=== PATIENT | female | born 1970 | race Caucasian/White ===

== ENCOUNTER 2016-08-02 18:07 | Emergency (ER) | payer OTHER, BC ==
[2016-08-02] MEDS ORDERED: KETOROLAC 30 MG/ML VIAL (J1885) As Ordered ONE (19:33)
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
--- NOTE | 2016-08-02 20:09 | EDDOCDS ---
Physician Documentation [facility] Name: Livia Hilton Age: 46 yrs Sex: Female : 1970 Arrival Date: 08/02/2016 Time: 18:07 Bed 12 Private MD: Declan Mensah [facility] Disposition: 08/02/16 19:26 Discharged to Home/Self Care. Impression: Contusion of right front wall of thorax. - Condition is Stable. - Medication Reconciliation, Local Pharmacy Hours form. - Follow up: Declan Mensah; When: Call to arrange an appointment; Reason: Recheck today's complaints. - Problem is new. - Symptoms have improved. Historical: - Allergies: Pred Mild; - Home Meds: 1. Synthroid 25 mcg Oral tab 1 tab once daily 2. Celebrex 200 mg Oral cap 1 cap once daily 3. omeprazole 40 mg Oral cpDR 1 cap once daily 4. Celexa 40 mg Oral tab 1 tab once daily - PMHx: Hypothyroidism; GERD; Anxiety; Osteoarthritis; - PSHx: none; - Immunization history: Last tetanus immunization: < 5 years ago. - Social history: Smoking status: Patient states was never smoker of tobacco. No barriers to communication noted, The patient speaks fluent Azerbaijani, Speaks appropriately for age. - Family history: Not pertinent. - Last oral intake was: lunch at noon. - : The pt / caregiver states he / she is not on anticoagulants. Home medication list is obtained from the patient. - Exposure Risk Screening:: None identified. 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 4 in. (162.56 cm); Pain 5/10; 20:07 BP 130 / 65; Pulse 78; Resp 16; Temp 98.4; Pulse Ox 95% ; Pain 6/10; ko2 18:23 Body Mass Index 39.31 (103.87 kg, 162.56 cm) hs1 Trauma Score (Adult): 18:23 Eye Response: spontaneous(1); Verbal Response: oriented(1); Motor Response: obeys hs1 commands(2); Systolic BP: > 89 mm Hg(4); Respiratory Rate: 10 to 29 per min(4); [place] Score: 15; Trauma Score: 12 MDM: 18:36 IV Saline Lock ordered. br1 18:36 Undress patient ordered. br1 18:36 Metrology Technician/Pulse Ox/q 30 min VS ordered. br1 18:38 Chest, 1 View Ordered. EDMS 19:18 ketorolac 60 mg IM once ordered. cs11 19:38 [facility] Payment Agreement was scanned into [employer] and attached to record. jp5 19:38 Financial registration complete. jp5 19:40 [facility] was scanned into [employer] and attached to record. jp5 Administered Medications: 19:39 Drug: ketorolac 60 mg [ketorolac 30 mg/mL (1 mL) injection solution (2 mL)] Route: IM; ko2 Site: left vastus lateralis; Signatures: Dispatcher Med[employer] EDMS Cristino Hawkins MD MD br1 Tasha Tello RN RN hs1 Louis Kaba DO DO cs11 Anastasia Diaz RN RN ko2 Roxanne Clark jp5 The chart was reviewed and I authenticate all verbal orders and agree with the evaluation and treatment provided.Attachments: 19:38 [place] Payment Agreement jp5 MTDD
--- NOTE | 2016-08-03 22:17 | REP ---
AP portable sitting chest radiograph 08/02/2016 Indication: Trauma Comparison: PA and lateral chest 05/08/2012 performed at [facility] Findings: Study is somewhat limited by portable technique and underpenetration. The cardiomediastinal silhouette is normal. Lungs are clear bilaterally. Bones and soft tissues within normal limits. Impression: Study somewhat limited by portable technique and underpenetration. No visualized acute cardiopulmonary process or interval change. Signed by Leanne Wylie MD 08/03/2016 10:08 P
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
--- NOTE | 2016-08-04 21:09 | EDDOCDS ---
Physician Documentation [facility] Name: Livia Hilton Age: 46 yrs Sex: Female : 1970 Arrival Date: 08/02/2016 Time: 18:07 Bed 12 Private MD: Declan Mensah [facility] Disposition: 08/02/16 19:26 Discharged to Home/Self Care. Impression: Contusion of right front wall of thorax. - Condition is Stable. - Medication Reconciliation, Local Pharmacy Hours form. - Follow up: Declan Mensah; When: Call to arrange an appointment; Reason: Recheck today's complaints. - Problem is new. - Symptoms have improved. Historical: - Allergies: Pred Mild; - Home Meds: 1. Synthroid 25 mcg Oral tab 1 tab once daily 2. Celebrex 200 mg Oral cap 1 cap once daily 3. omeprazole 40 mg Oral cpDR 1 cap once daily 4. Celexa 40 mg Oral tab 1 tab once daily - PMHx: Hypothyroidism; GERD; Anxiety; Osteoarthritis; - PSHx: none; - Immunization history: Last tetanus immunization: < 5 years ago. - Social history: Smoking status: Patient states was never smoker of tobacco. No barriers to communication noted, The patient speaks fluent Danish, Speaks appropriately for age. - Family history: Not pertinent. - Last oral intake was: lunch at noon. - : The pt / caregiver states he / she is not on anticoagulants. Home medication list is obtained from the patient. - Exposure Risk Screening:: None identified. 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 4 in. (162.56 cm); Pain 5/10; 20:07 BP 130 / 65; Pulse 78; Resp 16; Temp 98.4; Pulse Ox 95% ; Pain 6/10; ko2 18:23 Body Mass Index 39.31 (103.87 kg, 162.56 cm) hs1 Trauma Score (Adult): 18:23 Eye Response: spontaneous(1); Verbal Response: oriented(1); Motor Response: obeys hs1 commands(2); Systolic BP: > 89 mm Hg(4); Respiratory Rate: 10 to 29 per min(4); [place] Score: 15; Trauma Score: 12 MDM: 18:36 IV Saline Lock ordered. br1 18:36 Undress patient ordered. br1 18:36 Lathe Turner/Pulse Ox/q 30 min VS ordered. br1 18:38 Chest, 1 View Ordered. EDMS 19:18 ketorolac 60 mg IM once ordered. cs11 19:38 [facility] Payment Agreement was scanned into [employer] and attached to record. jp5 19:38 Financial registration complete. jp5 19:40 [facility] was scanned into [employer] and attached to record. jp5 08/03 10:12 T-Sheet-- Draft Copy was scanned into [employer] and attached to record. gb 10:12 PCR was scanned into [employer] and attached to record. gb Administered Medications: 08/02 19:39 Drug: ketorolac 60 mg [ketorolac 30 mg/mL (1 mL) injection solution (2 mL)] Route: IM; ko2 Site: left vastus lateralis; Signatures: Dispatcher [employer] EDMS Adrienne Darling, Reg Reg gb Cristino Hawkins MD MD br1 Tasha Tello RN RN hs1 Louis Kaba DO DO cs11 Anastasia Diaz,ADRIÁN RN ko2 Roxanne Clark jp5 The chart was reviewed and I authenticate all verbal orders and agree with the evaluation and treatment provided.Attachments: :38 [facility] Payment Agreement 5 08/03 10:12 T-Sheet-- Draft Copy gb Chart Complete MTDD
--- NOTE | 2016-08-04 21:10 | EDDOCDS ---
Physician Documentation [facility] Name: Livia Hilton Age: 46 yrs Sex: Female : 1970 Arrival Date: 08/02/2016 Time: 18:07 Bed 12 Private MD: Declan Mensah [facility] Disposition: 08/02/16 19:26 Discharged to Home/Self Care. Impression: Contusion of right front wall of thorax. - Condition is Stable. - Medication Reconciliation, Local Pharmacy Hours form. - Follow up: Declan Mensah; When: Call to arrange an appointment; Reason: Recheck today's complaints. - Problem is new. - Symptoms have improved. Historical: - Allergies: Pred Mild; - Home Meds: 1. Synthroid 25 mcg Oral tab 1 tab once daily 2. Celebrex 200 mg Oral cap 1 cap once daily 3. omeprazole 40 mg Oral cpDR 1 cap once daily 4. Celexa 40 mg Oral tab 1 tab once daily - PMHx: Hypothyroidism; GERD; Anxiety; Osteoarthritis; - PSHx: none; - Immunization history: Last tetanus immunization: < 5 years ago. - Social history: Smoking status: Patient states was never smoker of tobacco. No barriers to communication noted, The patient speaks fluent Beninese, Speaks appropriately for age. - Family history: Not pertinent. - Last oral intake was: lunch at noon. - : The pt / caregiver states he / she is not on anticoagulants. Home medication list is obtained from the patient. - Exposure Risk Screening:: None identified. 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 4 in. (162.56 cm); Pain 5/10; 20:07 BP 130 / 65; Pulse 78; Resp 16; Temp 98.4; Pulse Ox 95% ; Pain 6/10; ko2 18:23 Body Mass Index 39.31 (103.87 kg, 162.56 cm) hs1 Trauma Score (Adult): 18:23 Eye Response: spontaneous(1); Verbal Response: oriented(1); Motor Response: obeys hs1 commands(2); Systolic BP: > 89 mm Hg(4); Respiratory Rate: 10 to 29 per min(4); [place] Score: 15; Trauma Score: 12 MDM: 18:36 IV Saline Lock ordered. br1 18:36 Undress patient ordered. br1 18:36 Yarn Mercerizer Operator/Pulse Ox/q 30 min VS ordered. br1 18:38 Chest, 1 View Ordered. EDMS 19:18 ketorolac 60 mg IM once ordered. cs11 19:38 [facility] Payment Agreement was scanned into [employer] and attached to record. jp5 19:38 Financial registration complete. jp5 19:40 [facility] was scanned into [employer] and attached to record. jp5 08/03 10:12 T-Sheet-- Draft Copy was scanned into [employer] and attached to record. gb 10:12 PCR was scanned into [employer] and attached to record. gb Administered Medications: 08/02 19:39 Drug: ketorolac 60 mg [ketorolac 30 mg/mL (1 mL) injection solution (2 mL)] Route: IM; ko2 Site: left vastus lateralis; Signatures: Dispatcher [employer] EDMS Adrienne Darling, Reg Reg gb Cristino Hawkins MD MD br1 Tasha Tello RN RN hs1 Louis Kaba DO DO cs11 Anastasia Diaz,ADRIÁN RN ko2 Roxanne Clark jp5 The chart was reviewed and I authenticate all verbal orders and agree with the evaluation and treatment provided.Attachments: :38 [facility] Payment Agreement 5 08/03 10:12 T-Sheet-- Draft Copy gb Chart Complete MTDD
== END 2016-08-02 20:08 | disposition home or self-care (01) ==
LOC: M ED 18:07
DX: S20.211A Contusion of right front wall of thorax, initial encounter (principal); V43.52XA Car driver injured in collision with other type car in traffic accident, initial encounter; Y92.410 Unspecified street and highway as the place of occurrence of the external cause; E03.9 Hypothyroidism, unspecified; K21.9 Gastro-esophageal reflux disease without esophagitis; F41.9 Anxiety disorder, unspecified; M19.90 Unspecified osteoarthritis, unspecified site; Z79.899 Other long term (current) drug therapy
CPT/HCPCS: 71010; 93041; 96372; 99285; J1885

== ENCOUNTER 2017-05-26 18:14 | Emergency (ER) | payer BC ==
[~2017-05-26] VITALS: Ht 160 cm; Wt 113.6 kg
[2017-05-26] MEDS ORDERED: CELE1CAP9 (18:29)
[2017-05-26] MEDS ORDERED: CITA40TA4 (18:29)
[2017-05-26] MEDS ORDERED: VITA1CAP40 (18:29)
[2017-05-26] MEDS ORDERED: LEVO25TA5 (18:29)
[2017-05-26] MEDS ORDERED: PANT40TA2 (18:29)
[2017-05-26] MEDS ORDERED: ASPIRIN 325 MG TAB PO ONE (19:00)
[2017-05-26] MEDS ORDERED: NS 1,000 ML IV ONE (19:00)
[2017-05-26 19:03] LABS: BASO # 0.1 10^3/uL (0.0-0.2); BASO % 0.7 % (0.0-1.0); EOS # 0.4 10^3/uL (0.0-0.50); EOS % 3.4 % (0.0-3.0); IMMATURE GRANULOCYTE % 0.3 % (0-0); LYMPH # 4.4 10^3/uL (1.5-4.5); MEAN CORPUSCULAR HEMOGLOBIN 28.7 pg (27.0-33.0); MEAN CORPUSCULAR HGB CONC 32.1 g/dl (32.0-36.5); MEAN CORPUSCULAR VOLUME 89.5 fl (80.0-96.0); MONO # 0.7 10^3/uL (0.0-0.8); MONO % 6.2 % (0.0-5.0); NEUTROPHILS # 5.9 10^3/uL (1.8-7.7); NEUTROPHILS % 51.4 % (36.0-66.0); PLATELET COUNT, AUTOMATED 326 10^3/uL (150-450); RED CELL DISTRIBUTION WIDTH 12.3 % (11.5-14.5); WHITE BLOOD COUNT 11.5 10^3/uL (4.0-10.0)
[2017-05-26 19:35] LABS: CONTROL LINE HCG INT CTR LINE PRESENT
[2017-05-26 19:36] LABS: ALBUMIN 3.8 GM/DL (3.2-5.2); ALBUMIN/GLOBULIN RATIO 1.06 (1.00-1.93); ALKALINE PHOSPHATASE 85 U/L (45-117); ALT/SGPT 34 U/L (12-78); ANION GAP 6 MEQ/L (8-16); AST/SGOT 15 U/L (7-37); BILIRUBIN,DIRECT < 0.1 MG/DL (0.0-0.2); BILIRUBIN,TOTAL 0.2 MG/DL (0.2-1.0); BLOOD UREA NITROGEN 17 MG/DL (7-18); CARBON DIOXIDE LEVEL 29 MEQ/L (21-32); CHLORIDE LEVEL 105 MEQ/L (98-107); CREATININE FOR GFR 0.82 MG/DL (0.55-1.02); GLOMERULAR FILTRATION RATE > 60.0 (>58); GLUCOSE, FASTING 86 MG/DL (70-105); POTASSIUM SERUM 3.9 MEQ/L (3.5-5.1); SODIUM LEVEL 140 MEQ/L (136-145); TOTAL PROTEIN 7.4 GM/DL (6.4-8.2)
--- NOTE | 2017-05-26 19:36 | REP ---
AP PORTABLE CHEST: 05/26/2017: Comparison: 08/02/2016, 05/08/2012. Clinical history: Chest pain. Findings: AP portable chest is provided. Lungs are only marginally adequate in the degree of inflation. There is no gross effusion or dense consolidation. Some superimposed patchy atelectasis in the right infrahilar region and both suprahilar regions. No dense consolidation, cardiomegaly, karin edema or other acute finding. The aorta and airway were intact. Bony thorax unremarkable. Impression: 1. Some infrahilar right and suprahilar bilateral patchy atelectasis or infiltrates without gross cardiomegaly, karin edema or definite effusion. 2. The airway, aorta and mediastinal contours unremarkable. Signed by Skyler Springer MD 05/26/2017 08:05 P
[2017-05-26] MEDS ORDERED: ZITHTAB PO (20:21)
[2017-05-26] MEDS ORDERED: AZITHROMYCIN 250 MG TAB PO ONE (20:30)
[2017-05-26 20:32] VITALS: BP 150/73
--- NOTE | 2017-05-27 06:33 | ECGEPIP ---
Stationary ECG Study [facility] - ED Test Date: 2017-05-26 Pat Name: FANNY HUSAIN Department: Room: - Gender: F Moulder Operator: dara : 1970 Requested By: Ellen Sheikh Order Number: [id number] Reading MD: Aguila Carrizales Measurements Intervals [place] Rate: 61 P: 30 AL: 141 QRS: 34 QRSD: 89 T: 6 QT: 445 QTc: 451 Interpretive Statements SINUS RHYTHM NSTTW ABNORMALITIES NO PRIORS FOR COMPARISON Electronically Signed On 05-27-2017 6:32:57 EST by Aguila Carrizales
== END 2017-05-26 20:34 | disposition home or self-care (01) ==
LOC: M ED 18:14
DX: R00.2 Palpitations (principal); E03.9 Hypothyroidism, unspecified; K21.9 Gastro-esophageal reflux disease without esophagitis; F41.9 Anxiety disorder, unspecified; Z82.49 Family history of ischemic heart disease and other diseases of the circulatory system; Z79.899 Other long term (current) drug therapy

== ENCOUNTER → 2017-06-25 | Outpatient (CLI) | payer BC ==
[~2017-06-25] MED LIST: CELE1CAP9; CITA40TA4; LEVO25TA5; PANT40TA2; VITA1CAP40; ZITHTAB PO
--- NOTE | 2017-06-25 13:45 | REP ---
PA and lateral chest: Comparison is the portable chest dated 05/26/2017. The lung means are clear. The cardiac size is normal The ana, mediastinum, and bony thorax are unremarkable. Impression: Negative PA and lateral chest. The previous infiltrates have resolved. Signed by Diaz Tracey MD 06/25/2017 01:37 P
== END ==
LOC: M WUC 11:26
PROVIDERS: ATTEND Nurse Practitioner Family
DX: J18.9 Pneumonia, unspecified organism (principal)

== ENCOUNTER → 2017-08-02 | Outpatient (CLI) | payer BC | LOC: M WUC 08:00 | DX: E03.9 Hypothyroidism, unspecified (principal) | CPT/HCPCS: 36415 ==

== ENCOUNTER → 2017-08-10 | Outpatient (CLI) | payer BC ==
[2017-08-10 18:06] LABS: FREE T3 2.6 PG/ML (2.2-4.0); FREE T4 0.85 NG/DL (0.76-1.46)
== END ==
LOC: M WUC 10:37
DX: E03.9 Hypothyroidism, unspecified (principal)
CPT/HCPCS: 84443

== ENCOUNTER → 2017-11-15 | Outpatient (REF) | payer BC ==
[2017-11-15 14:54] LABS: BASO # 0.1 10^3/uL (0.0-0.2); BASO % 0.8 % (0.0-1.0); EOS # 0.3 10^3/uL (0.0-0.50); HEMATOCRIT 38.9 % (36.0-47.0); HEMOGLOBIN 12.4 g/dl (12.0-15.5); IMMATURE GRANULOCYTE % 0.4 % (0-3.0); LYMPH # 2.1 10^3/uL (1.5-4.5); MEAN CORPUSCULAR HEMOGLOBIN 28.8 pg (27.0-33.0); MEAN CORPUSCULAR HGB CONC 31.9 g/dl (32.0-36.5); MEAN CORPUSCULAR VOLUME 90.5 fl (80.0-96.0); MONO # 0.4 10^3/uL (0.0-0.8); MONO % 5.4 % (0.0-5.0); NEUTROPHILS # 4.9 10^3/uL (1.8-7.7); NEUTROPHILS % 62.4 % (36.0-66.0); PLATELET COUNT, AUTOMATED 310 10^3/uL (150-450); RED CELL DISTRIBUTION WIDTH 12.5 % (11.5-14.5); WHITE BLOOD COUNT 7.8 10^3/uL (4.0-10.0)
[2017-11-15 15:24] LABS: ALBUMIN 3.7 GM/DL (3.2-5.2); ALBUMIN/GLOBULIN RATIO 1.16 (1.00-1.93); ALKALINE PHOSPHATASE 87 U/L (45-117); ALT/SGPT 27 U/L (12-78); ANION GAP 5 MEQ/L (8-16); AST/SGOT 17 U/L (7-37); BILIRUBIN,TOTAL 0.5 MG/DL (0.2-1.0); BLOOD UREA NITROGEN 12 MG/DL (7-18); CALCIUM LEVEL 8.5 MG/DL (8.5-10.1); CARBON DIOXIDE LEVEL 30 MEQ/L (21-32); CHLORIDE LEVEL 107 MEQ/L (98-107); CHOLESTEROL LEVEL 153 MG/DL (<200); CHOLESTEROL RISK RATIO 3.731 (<5); CREATININE FOR GFR 0.71 MG/DL (0.55-1.30); FREE T3 2.6 PG/ML (2.2-4.0); FREE T4 0.86 NG/DL (0.76-1.46); GLOMERULAR FILTRATION RATE > 60.0 (>58); GLUCOSE, FASTING 93 MG/DL (70-100); HDL CHOLESTEROL 41 MG/DL (>40); NON-HDL-C 112 MG/DL; POTASSIUM SERUM 4.3 MEQ/L (3.5-5.1); SODIUM LEVEL 142 MEQ/L (136-145); TOTAL PROTEIN 6.9 GM/DL (6.4-8.2); TRIGLYCERIDES LEVEL 85 MG/DL (<150)
[2017-11-15 16:49] LABS: ERYTHROCYTE SEDIMENTATION RATE 17 mm/hr (0-20)
[2017-11-17 10:30] LABS: TOTAL 25(OH) VITAMIN D 27.2 NG/ML (30.0-100.0)
== END ==
LOC: M LAB REF 14:31
DX: K21.9 Gastro-esophageal reflux disease without esophagitis (principal); M13.0 Polyarthritis, unspecified; E55.9 Vitamin D deficiency, unspecified; Z13.220 Encounter for screening for lipoid disorders; E03.9 Hypothyroidism, unspecified
CPT/HCPCS: 84443

== ENCOUNTER → 2018-01-08 | Outpatient (REF) | payer BC | LOC: M LAB REF 13:59 | DX: N60.01 Solitary cyst of right breast (principal) | CPT/HCPCS: 88305 ==

== ENCOUNTER → 2018-02-02 | Outpatient (REF) | payer BC | LOC: M LAB REF 19:18 | DX: N39.0 Urinary tract infection, site not specified (principal) | CPT/HCPCS: 87086 ==

== ENCOUNTER → 2018-06-23 | Outpatient (REF) | payer BC ==
[2018-06-23 21:39] LABS: APPEARANCE, URINE MANUAL TURBID (CLEAR); COLOR, URINE MANUAL YELLOW (YELLOW)
[2018-06-23 21:41] LABS: PROTEIN, URINE MANUAL TRACE mg/dL (NEGATIVE); SPECIFIC GRAVITY,URINE MANUAL 1.025 (1.002-1.035)
[2018-06-23 21:42] LABS: BILIRUBIN, URINE MANUAL NEGATIVE (NEGATIVE); BLOOD URINE MANUAL POSITIVE (NEGATIVE); GLUCOSE, URINE (UA) MANUAL NEGATIVE (NEGATIVE); KETONE, URINE MANUAL NEGATIVE (NEGATIVE); LEUKOCYTE ESTERASE, URINE MAN POSITIVE (NEGATIVE); MICROSCOPIC INDICATED? MAN YES (NO); NITRITE, URINE MANUAL POSITIVE (NEGATIVE); UROBILINOGEN, URINE MANUAL NORMAL (NORMAL)
[2018-06-23 21:50] LABS: RBC, URINE TNTC /hpf (0-3); WBC, URINE TNTC /hpf (0-3)
[2018-06-23 21:51] LABS: BACTERIA, URINE SMALL AMOUNT; HYALINE CAST, URINE NONE SEEN /lpf (0-1); MICROSCOPIC EXAM PERFORMED; SQUAMOUS EPITHELIAL CELL URINE SMALL AMOUNT /hpf (SMALL AMT); TRANSITIONAL EPI CELLS, URINE SMALL AMOUNT /hpf
== END ==
LOC: M LAB REF 10:01
DX: N39.0 Urinary tract infection, site not specified (principal)
CPT/HCPCS: 81015

== ENCOUNTER → 2018-06-27 | Outpatient (CLI) | payer BC ==
[~2018-06-27] MED LIST changes: -PANT40TA2; +PANT40TA3; -VITA1CAP40; +VITA50005
[2018-06-27 16:49] LABS: BASO # 0.1 10^3/uL (0.0-0.2); BASO % 0.8 % (0.0-1.0); EOS # 0.3 10^3/uL (0.0-0.50); EOS % 3.6 % (0.0-3.0); HEMATOCRIT 43.9 % (36.0-47.0); HEMOGLOBIN 13.7 g/dl (12.0-15.5); LYMPH # 2.3 10^3/uL (1.5-4.5); LYMPH % 29.5 % (24.0-44.0); MEAN CORPUSCULAR HGB CONC 31.2 g/dl (32.0-36.5); MONO # 0.5 10^3/uL (0.0-0.8); MONO % 5.8 % (0.0-5.0); NEUTROPHILS # 4.7 10^3/uL (1.8-7.7); NEUTROPHILS % 59.9 % (36.0-66.0); PLATELET COUNT, AUTOMATED 344 10^3/uL (150-450); RED BLOOD COUNT 4.72 10^6/uL (4.00-5.40); WHITE BLOOD COUNT 7.8 10^3/uL (4.0-10.0)
[2018-06-27 17:03] LABS: ALBUMIN 3.8 GM/DL (3.2-5.2); ALT/SGPT 33 U/L (12-78); BILIRUBIN,TOTAL 0.4 MG/DL (0.2-1.0); BLOOD UREA NITROGEN 15 MG/DL (7-18); CARBON DIOXIDE LEVEL 30 MEQ/L (21-32); CHLORIDE LEVEL 104 MEQ/L (98-107); CREATININE FOR GFR 0.83 MG/DL (0.55-1.30); FREE T3 2.6 PG/ML (2.2-4.0); FREE T4 0.86 NG/DL (0.76-1.46); GLOMERULAR FILTRATION RATE > 60.0 (>58); GLUCOSE, FASTING 79 MG/DL (70-100); POTASSIUM SERUM 4.9 MEQ/L (3.5-5.1); SODIUM LEVEL 140 MEQ/L (136-145); TOTAL PROTEIN 7.2 GM/DL (6.4-8.2)
[2018-06-29 11:39] LABS: TOTAL 25(OH) VITAMIN D 40.9 NG/ML (30.0-100.0)
== END ==
LOC: M WUC 12:21
PROVIDERS: ATTEND Nurse Practitioner Family
DX: K21.9 Gastro-esophageal reflux disease without esophagitis (principal); E55.9 Vitamin D deficiency, unspecified; E03.9 Hypothyroidism, unspecified

== ENCOUNTER → 2018-07-09 | Outpatient (REF) | payer BC ==
[2018-07-09 17:52] LABS: APPEARANCE, URINE CLOUDY (CLEAR); BACTERIA, URINE AUTO NEGATIVE (NEGATIVE); BILIRUBIN, URINE AUTO NEGATIVE (NEGATIVE); BLOOD, URINE BLOOD 2+ (NEGATIVE); COLOR, URINE YELLOW (YELLOW); GLUCOSE, URINE (UA) AUTO NEGATIVE (NEGATIVE); KETONE, URINE AUTO NEGATIVE (NEGATIVE); LEUKOCYTE ESTERASE, URINE AUTO 3+ (NEGATIVE); MUCUS, URINE SMALL (NEGATIVE); NITRITE, URINE AUTO NEGATIVE (NEGATIVE); PROTEIN, URINE AUTO 2+ mg/dL (NEGATIVE); RBC, URINE AUTO 12 /HPF (0-3); SPECIFIC GRAVITY URINE AUTO 1.024 (1.002-1.035); SQUAMOUS EPITHELIAL CELL UR AU 1 /HPF (0-6); UROBILINOGEN, URINE AUTO 0.2 mg/dL (0.0-2.0); WBC, URINE AUTO TNTC /HPF (0-3)
== END ==
LOC: M LAB REF 16:34
PROVIDERS: ATTEND Physician Assistant
DX: N39.0 Urinary tract infection, site not specified (principal)

== ENCOUNTER → 2019-02-27 | Outpatient (CLI) | payer BC ==
[2019-02-27 11:02] LABS: APPEARANCE, URINE HAZY (CLEAR); BACTERIA, URINE AUTO NEGATIVE (NEGATIVE); BILIRUBIN, URINE AUTO NEGATIVE (NEGATIVE); BLOOD, URINE BLOOD NEGATIVE (NEGATIVE); COLOR, URINE YELLOW (YELLOW); GLUCOSE, URINE (UA) AUTO NEGATIVE (NEGATIVE); HEMATOCRIT 43.5 % (36.0-47.0); HEMOGLOBIN 14.2 g/dl (12.0-15.5); KETONE, URINE AUTO NEGATIVE (NEGATIVE); LEUKOCYTE ESTERASE, URINE AUTO TRACE (NEGATIVE); MEAN CORPUSCULAR HEMOGLOBIN 29.7 pg (27.0-33.0); MEAN CORPUSCULAR HGB CONC 32.6 g/dl (32.0-36.5); MUCUS, URINE SMALL (NEGATIVE); NITRITE, URINE AUTO NEGATIVE (NEGATIVE); PLATELET COUNT, AUTOMATED 323 10^3/uL (150-450); PROTEIN, URINE AUTO NEGATIVE (NEGATIVE); RBC, URINE AUTO 2 /HPF (0-3); RED BLOOD COUNT 4.78 10^6/uL (4.00-5.40); SPECIFIC GRAVITY URINE AUTO 1.016 (1.002-1.035); SQUAMOUS EPITHELIAL CELL UR AU 3 /HPF (0-6); UROBILINOGEN, URINE AUTO 0.2 mg/dL (0.0-2.0); WBC, URINE AUTO 6 /HPF (0-3); WHITE BLOOD COUNT 7.7 10^3/uL (4.0-10.0)
[2019-02-27 11:25] LABS: HEMOGLOBIN A1c 6.2 %
[2019-02-27 11:34] LABS: ALBUMIN 3.5 GM/DL (3.2-5.2); ALT/SGPT 39 U/L (12-78); BILIRUBIN,TOTAL 0.5 MG/DL (0.2-1.0); BLOOD UREA NITROGEN 14 MG/DL (7-18); CALCIUM LEVEL 8.9 MG/DL (8.5-10.1); CARBON DIOXIDE LEVEL 29 MEQ/L (21-32); CHLORIDE LEVEL 106 MEQ/L (98-107); CHOLESTEROL LEVEL 161 MG/DL (<200); CHOLESTEROL RISK RATIO 4.128 (<5); CREATININE FOR GFR 0.78 MG/DL (0.55-1.30); GLOMERULAR FILTRATION RATE > 60.0 (>51); GLUCOSE, FASTING 99 MG/DL (70-100); HDL CHOLESTEROL 39 MG/DL (>40); LDL CHOLESTEROL 98 MG/DL (<100); NON-HDL-C 122 MG/DL; POTASSIUM SERUM 4.4 MEQ/L (3.5-5.1); SODIUM LEVEL 141 MEQ/L (136-145); TOTAL PROTEIN 6.9 GM/DL (6.4-8.2); TRIGLYCERIDES LEVEL 119 MG/DL (<150)
[2019-03-01 11:27] LABS: TOTAL 25(OH) VITAMIN D 64.8 NG/ML (30.0-100.0)
== END ==
LOC: M WUC 09:45
PROVIDERS: ATTEND Internal Medicine
DX: Z00.00 Encounter for general adult medical examination without abnormal findings (principal)

== ENCOUNTER → 2019-03-27 | Outpatient (CLI) | payer BC ==
--- NOTE | 2019-03-27 13:52 | REP ---
Atraumatic pain. COMPARISON: 03/08/2016 Mild joint space narrowing, status quo. No change from the prior exam. No acute disease. IMPRESSION: No significant change from 03/08/2016. Electronically Signed by Cirilo Juarez DO 03/27/2019 03:18 P
== END ==
LOC: M WUC 12:38
PROVIDERS: ATTEND Internal Medicine
DX: M25.552 Pain in left hip (principal)

== ENCOUNTER 2019-07-13 17:11 | Emergency (ER) | payer BC ==
[~2019-07-13] VITALS: Ht 162.6 cm; Wt 106.8 kg
[2019-07-13] MEDS ORDERED: GABA-1171 (17:19)
[2019-07-13] MEDS ORDERED: IBUPROFEN 800 MG TAB PO ONE (18:00)
--- NOTE | 2019-07-13 18:23 | REP ---
Clinical: Trauma. Fall. Technique: AP and lateral views of the left tibia / fibula. Findings: Age-related changes are appreciated. No acute fracture dislocation. No subcutaneous emphysema or foreign body. Impression: No acute fracture or dislocation. Electronically Signed by Satinder Graves MD 07/13/2019 06:15 P
--- NOTE | 2019-07-13 18:24 | REP ---
Clinical: Trauma. Fall. Technique: AP, lateral, bilateral oblique views at the left ankle. Findings: No acute fracture dislocation. Mild generalized swelling. No subcutaneous emphysema or radiodense foreign body. Ankle mortise intact. Lateral view demonstrates calcaneal heal spur. Impression: No acute fracture or dislocation. Electronically Signed by Satinder Graves MD 07/13/2019 06:16 P
[2019-07-13 18:43] VITALS: BP 135/60
== END 2019-07-13 18:44 | disposition home or self-care (01) ==
LOC: M ED 17:11
DX: S80.12XA Contusion of left lower leg, initial encounter (principal); S50.01XA Contusion of right elbow, initial encounter; W01.198A Fall on same level from slipping, tripping and stumbling with subsequent striking against other object, initial encounter; Y92.89 Other specified places as the place of occurrence of the external cause; Y99.0 Civilian activity done for income or pay; G43.909 Migraine, unspecified, not intractable, without status migrainosus; K21.9 Gastro-esophageal reflux disease without esophagitis; E03.9 Hypothyroidism, unspecified; M54.9 Dorsalgia, unspecified; Z79.899 Other long term (current) drug therapy

== ENCOUNTER → 2020-01-31 | Outpatient (CLI) | payer BC, OTHER ==
[~2020-01-31] MED LIST changes: +GABA-1171; +PANT40TA29; -PANT40TA3
--- NOTE | 2020-01-31 09:37 | REP ---
Clinical: Trauma. Technique: AP, lateral, bilateral oblique views left foot . Findings: The osseous structures and joint spaces are intact and normal. There is no evidence for acute fracture or dislocation. Surrounding soft tissues are unremarkable. No subcutaneous emphysema or radiodense foreign body. Impression: No acute fracture or dislocation. Electronically Signed by Satinder Graves MD 01/31/2020 09:29 A
== END ==
LOC: M WUC 09:15
PROVIDERS: ATTEND Physician Assistant
DX: M79.672 Pain in left foot (principal)

== ENCOUNTER → 2020-05-16 | Outpatient (REF) | payer BC, OTHER ==
[2020-05-16 17:26] LABS: APPEARANCE, URINE CLOUDY (CLEAR); BACTERIA, URINE AUTO 1+ (NEGATIVE); BILIRUBIN, URINE AUTO NEGATIVE (NEGATIVE); BLOOD, URINE BLOOD 1+ (NEGATIVE); COLOR, URINE YELLOW (YELLOW); GLUCOSE, URINE (UA) AUTO NEGATIVE (NEGATIVE); KETONE, URINE AUTO NEGATIVE (NEGATIVE); LEUKOCYTE ESTERASE, URINE AUTO 3+ (NEGATIVE); MUCUS, URINE SMALL (NEGATIVE); NITRITE, URINE AUTO NEGATIVE (NEGATIVE); PROTEIN, URINE AUTO NEGATIVE (NEGATIVE); RBC, URINE AUTO 6 /HPF (0-3); SPECIFIC GRAVITY URINE AUTO 1.026 (1.002-1.035); SQUAMOUS EPITHELIAL CELL UR AU 1 /HPF (0-6); UROBILINOGEN, URINE AUTO 0.2 mg/dL (0.0-2.0); WBC, URINE AUTO 127 /HPF (0-3)
== END ==
LOC: EEVIPCON 16:12 → M LAB REF 16:12
PROVIDERS: ATTEND Physician Assistant Medical
DX: N39.0 Urinary tract infection, site not specified (principal)

== ENCOUNTER → 2021-03-06 | Outpatient (CLI) | payer BC ==
--- NOTE | 2021-03-06 16:55 | REP ---
INDICATION: CONTUSION OF RIGHT ANKLE, INITIAL ENCOUNTER. COMPARISON: None. TECHNIQUE: Four views FINDINGS: No acute fracture or destructive osseous lesion. The mortise is intact. There is a plantar calcaneal heel spur. IMPRESSION: No acute osseous abnormality. <Electronically signed by Cirilo Juarez > 03/06/21 [id number]
--- NOTE | 2021-03-06 16:57 | REP ---
INDICATION: CONTUSION OF RIGHT ANKLE, INITIAL ENCOUNTER. COMPARISON: None. FINDINGS: The joint spaces are symmetric and relatively well maintained. There is no evidence of acute fracture or destructive osseous lesion. There is a plantar calcaneal heel spur. IMPRESSION: No acute osseous abnormality. <Electronically signed by Cirilo Juarez > 03/06/21 [id number]
== END ==
LOC: M PLAIMG 15:12
PROVIDERS: ATTEND Physician Assistant
DX: S90.31XA Contusion of right foot, initial encounter (principal); S90.01XA Contusion of right ankle, initial encounter; W18.30XA Fall on same level, unspecified, initial encounter; Y92.009 Unspecified place in unspecified non-institutional (private) residence as the place of occurrence of the external cause

== ENCOUNTER → 2021-11-07 | Outpatient (REF) | payer BC ==
[~2021-11-07] MED LIST changes: -CITA40TA4; +CITA40TA7
== END ==
LOC: M WUC 20:00
PROVIDERS: ATTEND Physician Assistant
DX: N39.0 Urinary tract infection, site not specified (principal)

== ENCOUNTER → 2022-01-24 | Outpatient (CLI) | payer BC | LOC: M WUC 10:07 | PROVIDERS: ATTEND Physician Assistant | DX: M54.50 Low back pain, unspecified (principal) ==

== ENCOUNTER → 2022-02-11 | Outpatient (CLI) | payer BC | LOC: M PLAIMG 07:20 | PROVIDERS: ATTEND Internal Medicine | DX: M51.36 Other intervertebral disc degeneration, lumbar region (principal); M51.37 Other intervertebral disc degeneration, lumbosacral region; D18.09 Hemangioma of other sites; M25.78 Osteophyte, vertebrae; M51.26 Other intervertebral disc displacement, lumbar region; M99.63 Osseous and subluxation stenosis of intervertebral foramina of lumbar region; M48.061 Spinal stenosis, lumbar region without neurogenic claudication ==

== ENCOUNTER → 2022-09-17 | Outpatient (REF) | payer BC | LOC: M LAB REF 16:44 | PROVIDERS: ATTEND Physician Assistant | DX: N39.0 Urinary tract infection, site not specified (principal) ==

== ENCOUNTER → 2022-10-18 | Outpatient (CLI) | payer BC | LOC: M PLAIMG 10:32 | PROVIDERS: ATTEND Nurse Practitioner Adult Health | DX: M51.36 Other intervertebral disc degeneration, lumbar region (principal) ==

== ENCOUNTER → 2022-11-04 | Outpatient (CLI) | payer BC | LOC: M PLAIMG 10:56 | PROVIDERS: ATTEND Nurse Practitioner Adult Health | DX: M54.59 Other low back pain (principal) ==

== ENCOUNTER → 2022-11-06 | Outpatient (CLI) | payer BC ==
[2022-11-06 12:08] LABS: BASO # 0.1 10^3/uL (0.0-0.2); BASO % 0.7 % (0.0-1.0); EOS # 0.3 10^3/uL (0.0-0.5); EOS % 3.9 % (0.0-3.0); HEMATOCRIT 43.6 % (36.0-47.0); HEMOGLOBIN 13.9 g/dl (12.0-15.5); LYMPH # 2.4 10^3/uL (1.5-5.0); LYMPH % 29.7 % (24.0-44.0); MEAN CORPUSCULAR HEMOGLOBIN 28.5 pg (27.0-33.0); MEAN CORPUSCULAR HGB CONC 31.9 g/dl (32.0-36.5); MEAN CORPUSCULAR VOLUME 89.3 fl (80.0-96.0); MONO # 0.5 10^3/uL (0.0-0.8); NEUTROPHILS # 4.8 10^3/uL (1.5-8.5); NEUTROPHILS % 59.3 % (36.0-66.0); PLATELET COUNT, AUTOMATED 318 10^3/uL (150-450); RED BLOOD COUNT 4.88 10^6/uL (4.00-5.40); WHITE BLOOD COUNT 8.1 10^3/uL (4.0-10.0)
[2022-11-06 12:40] LABS: ALBUMIN 3.6 G/DL (3.2-5.2); ALKALINE PHOSPHATASE 79 U/L (46-116); ALT/SGPT 32 U/L (7.0-40); AST/SGOT 23 U/L (<34); BILIRUBIN,TOTAL 0.7 MG/DL (0.3-1.2); BLOOD UREA NITROGEN 12 MG/DL (9-23); CALCIUM LEVEL 9.5 MG/DL (8.5-10.1); CARBON DIOXIDE LEVEL 29 MMOL/L (20-31); CHLORIDE LEVEL 107 MMOL/L (98-107); CHOLESTEROL LEVEL 180 MG/DL (<200); CHOLESTEROL RISK RATIO 4.54 (<5); CREATININE FOR GFR 0.84 MG/DL (0.55-1.30); FREE T4 0.85 NG/DL (0.89-1.76); GLOMERULAR FILTRATION RATE > 60.0 (>51); GLUCOSE, FASTING 114 MG/DL (60-100); HDL CHOLESTEROL 39.6 MG/DL (>40); NON-HDL-C 140.4 MG/DL; POTASSIUM SERUM 4.1 MMOL/L (3.5-5.1); SODIUM LEVEL 139 MMOL/L (136-145); THYROID STIMULATING HORMONE 3.976 uIU/ML (0.55-4.78); TOTAL PROTEIN 6.8 G/DL (5.7-8.2); TRIGLYCERIDES LEVEL 117 MG/DL (<150)
== END ==
LOC: M PLALAB 07:42
PROVIDERS: ATTEND Nurse Practitioner Adult Health
DX: E03.9 Hypothyroidism, unspecified (principal); G47.33 Obstructive sleep apnea (adult) (pediatric); E66.01 Morbid (severe) obesity due to excess calories

== ENCOUNTER → 2023-01-09 | Outpatient (CLI) | payer BC ==
[2023-01-09 12:26] LABS: BASO # 0.1 10^3/uL (0.0-0.2); BASO % 1.2 % (0.0-1.0); EOS # 0.3 10^3/uL (0.0-0.5); EOS % 4.4 % (0.0-3.0); HEMATOCRIT 43.7 % (36.0-47.0); HEMOGLOBIN 13.9 g/dl (12.0-15.5); LYMPH # 2.6 10^3/uL (1.5-5.0); MEAN CORPUSCULAR HEMOGLOBIN 29.1 pg (27.0-33.0); MEAN CORPUSCULAR HGB CONC 31.8 g/dl (32.0-36.5); MEAN CORPUSCULAR VOLUME 91.4 fl (80.0-96.0); MONO # 0.4 10^3/uL (0.0-0.8); MONO % 4.9 % (2.0-8.0); NEUTROPHILS # 4.3 10^3/uL (1.5-8.5); PLATELET COUNT, AUTOMATED 349 10^3/uL (150-450); RED BLOOD COUNT 4.78 10^6/uL (4.00-5.40); WHITE BLOOD COUNT 7.8 10^3/uL (4.0-10.0)
[2023-01-09 12:29] LABS: ALBUMIN 3.5 G/DL (3.2-5.2); ALKALINE PHOSPHATASE 87 U/L (46-116); ALT/SGPT 25 U/L (7.0-40); AST/SGOT 13 U/L (<34); BILIRUBIN,TOTAL 0.3 MG/DL (0.3-1.2); BLOOD UREA NITROGEN 13 MG/DL (9-23); CALCIUM LEVEL 9.5 MG/DL (8.5-10.1); CARBON DIOXIDE LEVEL 30 MMOL/L (20-31); CHLORIDE LEVEL 105 MMOL/L (98-107); CREATININE FOR GFR 0.72 MG/DL (0.55-1.30); GLOMERULAR FILTRATION RATE > 60.0 (>51); GLUCOSE, FASTING 135 MG/DL (60-100); POTASSIUM SERUM 4.2 MMOL/L (3.5-5.1); SODIUM LEVEL 139 MMOL/L (136-145); TOTAL PROTEIN 6.4 G/DL (5.7-8.2)
[2023-01-09 12:45] LABS: ERYTHROCYTE SEDIMENTATION RATE 18 mm/hr (0-30)
[2023-01-11 01:07] LABS: ANA (HEP2) Negative (.); IgG P18 AB Absent (.); IgG P23 AB Absent (.); IgG P28 AB Absent (.); IgG P30 AB Absent (.); IgG P39 AB Absent (.); IgG P41 AB Present (.); IgG P45 AB Absent (.); IgG P66 AB Absent (.); IgG P93 AB Absent (.); IgM P23 AB Absent (.); IgM P39 AB Absent (.); IgM P41 AB Absent (.); LYME IgG WB INTERPRETATION Negative (.); LYME IgM WB INTERPRETATION Negative (.)
== END ==
LOC: M PLALAB 07:18
PROVIDERS: ATTEND Physician Assistant
DX: R51.9 Headache, unspecified (principal)

== ENCOUNTER → 2023-05-26 | Outpatient (CLI) | payer BC ==
[~2023-05-26] MED LIST changes: +CELE0.09; -CELE1CAP9
[2023-05-26 11:21] LABS: THYROID STIMULATING HORMONE 4.03 uIU/ML (0.55-4.78)
[2023-05-26 11:22] LABS: FREE T4 0.94 NG/DL (0.89-1.76)
== END ==
LOC: M PLALAB 07:02
PROVIDERS: ATTEND Nurse Practitioner Adult Health
DX: E03.9 Hypothyroidism, unspecified (principal)

== ENCOUNTER → 2023-09-12 | Outpatient (REF) | payer BC | LOC: M LAB REF 15:21 | PROVIDERS: ATTEND Physician Assistant | DX: J03.90 Acute tonsillitis, unspecified (principal) ==

== ENCOUNTER → 2024-03-04 | Outpatient (CLI) | payer BC, OTHER ==
[~2024-03-04] MED LIST changes: +ISOVUE-300 61% 100ML VIAL As Ordered ONE; +LIDOCAINE 1% MDV 20ML VIAL As Ordered ONE; +PROHANCE 279.3MG/ML 5ML VIAL As Ordered ONE
== END ==
LOC: M RAD 12:48
PROVIDERS: ATTEND Physician Assistant
DX: M75.31 Calcific tendinitis of right shoulder (principal); S46.011A Strain of muscle(s) and tendon(s) of the rotator cuff of right shoulder, initial encounter; X58.XXXA Exposure to other specified factors, initial encounter; Y92.9 Unspecified place or not applicable
CPT/HCPCS: 23350; 73223; 77002; A9576; Q9967

== ENCOUNTER → 2024-11-18 | Outpatient (CLI) | payer OTHER ==
[~2024-11-18] MED LIST changes: -ISOVUE-300 61% 100ML VIAL As Ordered ONE; -LIDOCAINE 1% MDV 20ML VIAL As Ordered ONE; -PROHANCE 279.3MG/ML 5ML VIAL As Ordered ONE
== END ==
LOC: M PLAIMG 12:40
PROVIDERS: ATTEND Physician Assistant Surgical
DX: M54.12 Radiculopathy, cervical region (principal)

== ENCOUNTER → 2025-02-23 | Outpatient (CLI) | payer BC | LOC: M PLAIMG 15:09 | PROVIDERS: ATTEND Family Medicine | DX: M54.6 Pain in thoracic spine (principal); M54.50 Low back pain, unspecified; M53.3 Sacrococcygeal disorders, not elsewhere classified; M47.816 Spondylosis without myelopathy or radiculopathy, lumbar region; M47.818 Spondylosis without myelopathy or radiculopathy, sacral and sacrococcygeal region; M47.814 Spondylosis without myelopathy or radiculopathy, thoracic region ==